=== PATIENT | female | born 1980 | race African-American/Black ===

== ENCOUNTER 2019-03-17 04:53 | Outpatient (CLI) | payer SELFPAY ==
[2019-03-17 05:57] LABS: Basophils % (Auto) 0.5 % (0.0-1.8); Eosinophils # (Auto) 0.1 K/mm3 (0.0-0.4); Eosinophils % (Auto) 1.1 % (0.0-4.3); Hematocrit 37.8 % (30.3-42.9); Hemoglobin 12.6 gm/dl (10.1-14.3); Lymphocytes # (Auto) 1.6 K/mm3 (1.2-5.4); Lymphocytes % (Auto) 26.7 % (13.4-35.0); Mean Corpuscular HGB Conc 33 % (30-34); Mean Corpuscular Volume 91 fl (79-97); Monocytes # (Auto) 0.3 K/mm3 (0.0-0.8); Monocytes % (Auto) 5.8 % (0.0-7.3); Platelet Count 207 K/mm3 (140-440); Red Blood Count 4.16 M/mm3 (3.65-5.03); Red Cell Distribution Width 13.5 % (13.2-15.2)
[2019-03-17 06:44] LABS: Bilirubin,Urine NEG (Negative); Blood,Urine LG (Negative); Color,Urine Red (Yellow); Urobilinogen,Urine < 2.0 mg/dL (<2.0)
[2019-03-17 06:58] LABS: Bacteria,Urine 2+ /HPF (Negative)
[2019-03-17 07:10] LABS: RBC,Urine > 182.0 /HPF (0.0-6.0)
--- NOTE | 2019-03-17 08:37 | Emergency Department Report ---
ED HPI - General Chief complaint: Vaginal Bleeding Stated complaint: VAGINAL BLEEDING Time Seen by Provider: 03/17/19 07:14 Source: patient Mode of arrival: Ambulatory Limitations: No Limitations - History of Present Illness Initial comments: 39 yo female does not speaks Japanese. Her significant other is at bedside. Pt gave permission for him to translate. She believes she is 2 months started vaginal bleeding this morning associated with abdominal cramping. She has not had appointment with OB-[facility] CALL[facility]. . Reported miscarriage in June. Denies any PMH. Complaint: vaginal bleeding -: Sudden Radiation: LUQ, RLQ, other Severity: mild Quality: cramping Consistency: intermittent Improves with: none Worsens with: none Associated symptoms: denies other symptoms OB History - Current : no complications OB History - Previous Pregnancies: miscarriage (06/2018) Pre- care: none - Related Data : 3 Para: 1 Ab: 1 Previous Rx's Medication Instructions Recorded Last Taken Type oxyCODONE /ACETAMINOPHEN [Percocet 1 tab PO Q6HR PRN #30 tablet 08/13/15 Unknown Rx 5/325] Ferrous Sulfate [Feosol 325 MG tab] 325 mg PO TID #120 tablet 08/14/15 Unknown Rx Ibuprofen [Motrin 800 MG tab] 800 mg PO Q8H PRN #40 tablet 08/14/15 Unknown Rx Allergies Allergy/AdvReac Type Severity Reaction Status Date / Time No Known Allergies Allergy Verified 08/11/15 08:11 ED Review of Systems ROS: Stated complaint: VAGINAL BLEEDING Other details as noted in HPI Comment: All other systems reviewed and negative Gastrointestinal: abdominal pain Genitourinary: other (vaginal bleeding) ED Past Medical Hx - Past Medical History Previous Medical History?: No Hx Hypertension: No Hx Congestive Heart Failure: No Hx Diabetes: No Hx Deep Vein Thrombosis: No Hx Renal Disease: No Hx Sickle Cell Disease: No Hx Seizures: No Hx Asthma: No Hx COPD: No Hx HIV: No - Surgical History Past Surgical History?: Yes Additional Surgical History: c-sec - Social History Smoking Status: Never Smoker Substance Use Type: None - Medications Home Medications: Home Medications Medication Instructions Recorded Confirmed Last Taken Type oxyCODONE /ACETAMINOPHEN [Percocet 1 tab PO Q6HR PRN #30 tablet 08/13/15 Unknown Rx 5/325] Ferrous Sulfate [Feosol 325 MG tab] 325 mg PO TID #120 tablet 08/14/15 Unknown Rx Ibuprofen [Motrin 800 MG tab] 800 mg PO Q8H PRN #40 tablet 08/14/15 Unknown Rx ED Physical Exam - General Limitations: No Limitations - Head Head exam: Present: atraumatic - Eye Eye exam: Present: normal appearance - Respiratory Respiratory exam: Present: normal lung sounds bilaterally - Cardiovascular Cardiovascular Exam: Present: regular rate, normal heart sounds - GI/Abdominal GI/Abdominal exam: Present: soft, tenderness, normal bowel sounds. Absent: guarding, rebound, rigid - Rectal Rectal exam: Present: deferred - External exam: Present: normal external exam Speculum exam: Present: vaginal bleeding. Absent: vaginal discharge, tissue, laceration Bi-manual exam: Absent: adnexal tenderness - Extremities Exam Extremities exam: Present: normal inspection - Back Exam Back exam: Present: normal inspection - Neurological Exam Neurological exam: Present: alert - Psychiatric Psychiatric exam: Present: flat affect - Skin Skin exam: Present: warm, dry, intact, normal color ED Course Vital Signs 03/17/19 03/17/19 04:57 08:03 Temperature 98.1 F 98.6 F Pulse Rate 82 71 Respiratory 12 16 Rate Blood Pressure 110/69 111/56 O2 Sat by Pulse 95 97 Oximetry - Reevaluation(s) Reevaluation #1: 03/17/19 09:57 Up date given to patient Spoke with OB-D[facility] Shoveler regarding patient he plans to see patient shortly 03/17/19 10:13 03/17/19 11:19 Pt stable admitted to Short Stay for D/C ED Medical Decision Making - Lab Data Result diagrams: 03/17/19 05:16 - Radiology Data Radiology results: report reviewed Transvaginal US IMPRESSION: 1. A cystic structure within the endocervical canal measuring up to 2.9 cm may represent a passing gestational sac. Recommend correlation with exam and serial hCG. 2. Several uterine fibroids. - Medical Decision Making 39 yo female reporting that she is 2 month . Started vaginal bleeding this morning. HCGQ 5208. Transvaginal US IMPRESSION: 1. A cystic structure within the endocervical canal measuring up to 2.9 cm may represent a passing gestational sac. Recommend correlation with exam and serial hCG. 2. Several uterine fibroids. OB Dr Hernández in to see patient she is admitted to short stay for D/C Critical Care Time: No Critical care attestation.: If time is entered above; I have spent that time in minutes in the direct care of this critically ill patient, excluding procedure time. ED Disposition Clinical Impression: Incomplete miscarriage Disposition: DC/TX- [facility]-TRM GEN HOSP IP Is pt being admited?: No Does the pt Need Aspirin: No Condition: Stable Referrals: PRIMARY CARE, [Primary Care Provider] - 3-5 Days Time of Disposition: 11:24
--- NOTE | 2019-03-17 08:41 | Ultrasound Report ---
ULTRASOUND OBSTETRIC INDICATION / CLINICAL INFORMATION: vaginal bleeding. Clinical Gestational Age (GA): 16 weeks 4 days TECHNIQUE: Transabdominal and Transvaginal. COMPARISON: None available. FINDINGS: UTERUS: The uterus measures 12.4 x 7.8 x 7.1 cm. There are several uterine fibroids, the largest a s ubserosal fibroid from the posterior uterine body measuring up to 5.6 x 4.3 x 5.1 cm. The endometrium is thickened and heterogeneous, measuring up to 1.4 cm. There is no evidence of an intrauterine gest ation within the endometrial cavity. However, there is a cystic structure located within the endocerv ical canal measuring up to 2.9 x 2.5 cm. A small eccentric echogenic focus is seen within this cystic structure, possibly representing a tiny yolk sac. If this does indeed represent a gestational sac, t he mean sac diameter measures 2.7 cm compatible with 7 week 5 day. ADNEXA: The ovaries are not visualized. FREE FLUID: None. ADDITIONAL FINDINGS: None. IMPRESSION: 1. A cystic structure within the endocervical canal measuring up to 2.9 cm may represent a passing ge stational sac. Recommend correlation with exam and serial hCG. 2. Several uterine fibroids. Signer Name: Yu Asif MD Signed: 03/17/2019 8:36 AM Workstation Name: [email or web address]
--- NOTE | 2019-03-17 10:25 | Short Stay Summary ---
Short Stay Documentation Date of service: 03/17/19 Narrative H&P: Pt is a 39yo AF LMP 01/15/19 presents to [facility] ER complaining of heavy vaginal bleeding. She had similar episode of vaginal bleeding with a miscarriage in June 2018. Today her H/H is 12.6/37.8, Bhcg is 5208 and pelvic u/s showed muliple uterine fibroids and a 2.9cm gestational sac within the endocervical canal. She is therefore scheduled for a D&C due to Incomplete . - History Principal diagnosis: Incomplete H&P: obtained from office Past Medical History: No medical history Past Surgical History: Social history: no significant social history, - Allergies and Medications Current Medications: Allergies No Known Allergies Allergy (Verified 08/11/15 08:11) Home Medications Medication Instructions Recorded Confirmed Last Taken Type oxyCODONE /ACETAMINOPHEN [Percocet 1 tab PO Q6HR PRN #30 tablet 08/13/15 Unknown Rx 5/325] Ferrous Sulfate [Feosol 325 MG tab] 325 mg PO TID #120 tablet 08/14/15 Unknown Rx Ibuprofen [Motrin 800 MG tab] 800 mg PO Q8H PRN #40 tablet 08/14/15 Unknown Rx - Physical exam General appearance: mild distress HEENT: Atraumatic Lungs: Clear to auscultation Breasts: deferred Heart: Regular rate Gastrointestinal: normal Female Genitourinary: deferred Rectal Exam: deferred Extremities: no ischemia, No edema Neurological: Normal gait, Normal speech - Brief post op/procedure progress note Date of procedure: 03/17/19 Pre-op diagnosis: Incomplete Post-op diagnosis: same Procedure: Dilatation and Currettage Anesthesia: MAC Findings: A 12-14 weeks size uterus with moderate amounts of POC in the cervical canal. Surgeon: ANTHONY ELIZABETH Estimated blood loss: 50-100ml Pathology: list (POC) Specimen disposition: to lab Condition: stable - Hospital course Hospital course: Unremarkable. - Disposition Condition at discharge: Good Disposition: DC-01 TO HOME OR SELFCARE - Discharge Diagnoses (1) Incomplete miscarriage Status: Resolved Short Stay Discharge Plan Activity: no restrictions Diet: regular Follow up with: PRIMARY CAREMD [Primary Care Provider] - 3-5 Days ANTHONY ELIZABETH MD [Staff Physician] - 7 Days Prescriptions: Methylergonovine [Methergine] 0.2 mg PO Q8HR #6 tablet Ibuprofen [Motrin 800 MG tab] 800 mg PO Q8H PRN #30 tablet PRN Reason: Pain, Mild (1-3) DOXYCYCLINE Hyclate [Vibramycin CAP] 100 mg PO Q12HR #14 capsule
[2019-03-17] MEDS ORDERED: LACTATED RINGERS 1,000 ML IV SCH (11:00)
[2019-03-17] MEDS ORDERED: ceFAZolin/Water 2 GM/20 ML 2 GM/20 ML SYRINGE IV NR (11:00)
[2019-03-17] MEDS ORDERED: METHYLERGONOVINE MALEATE 0.2 MG/ML VIAL IM ONE (11:38)
--- NOTE | 2019-03-17 11:46 | Anesthesia Consultation ---
Anesthesia Consult and Med Hx Date of service: 03/17/19 - Airway Anesthetic Teeth Evaluation: Good ROM Head & Neck: Adequate Mental/Hyoid Distance: Adequate Mallampati Class: Class II Intubation Access Assessment: Probably Good - Pre-Operative Health Status ASA Pre-Surgery Classification: ASA2 Proposed Anesthetic Plan: General - Pulmonary Hx Smoking: No Hx Asthma: No Hx Respiratory Symptoms: No SOB: No COPD: No Home Oxygen Therapy: No Hx Pneumonia: No Hx Sleep Apnea: No - Cardiovascular System Hx Hypertension: No Hx Coronary Artery Disease: No Hx Heart Attack/AMI: No Hx Angina: No Hx Percutaneous Transluminal Coronary Angioplasty (PTCA): No Hx Cardia Arrhythmia: No Hx Pacemaker: No Hx Internal Defibrillator: No Hx Valvular Heart Disease: No Hx Heart Murmur: No Hx Peripheral Vascular Disease: No - Central Nervous System Hx Neuromuscular Disorder: No Hx Seizures: No CVA: No Hx Back Pain: No Hx Psychiatric Problems: No - Gastrointestinal Hx Ulcer: No Hx Gastroesophageal Reflux Disease: No - Endocrine Hx Renal Disease: No Hx End Stage Renal Disease: No Hx Cirrhosis: No Hx Liver Disease: No Hx Insulin Dependent Diabetes: No Hx Non-Insulin Dependent Diabetes: No Hx Thyroid Disease: No Hx Hypothyroidism: No Hx Hyperthyroidism: No - Hematic Hx Anemia: No Hx Sickle Cell Disease: No - Other Systems Hx Alcohol Use: No Hx Substance Use: No Hx Cancer: No Hx Obesity: No
--- NOTE | 2019-03-17 11:47 | Anesthesia Day of Surgery ---
Anesthesia Day of Surgery - Day of Surgery Patient Examined: Yes Patient H&P Reviewed: Yes Patient is NPO: Yes Beta Blockers: No
[2019-03-17] MEDS ORDERED: PROPOFOL 200 MG/20 ML VIAL IV ONE (12:02)
[2019-03-17] MEDS ORDERED: LIDOCAINE MPF (2%) 20 MG/1 ML VIAL 5 ML ONE (12:02)
[2019-03-17] MEDS ORDERED: fentaNYL 100 MCG/2 ML INJ ONE (12:02)
[2019-03-17] MEDS ORDERED: ceFAZolin/Water 2 GM/20 ML 2 GM/20 ML SYRINGE IV ONE ×2 (12:06)
[2019-03-17] MEDS ORDERED: ceFAZolin 1 GM VIAL ONE (12:07)
[2019-03-17] MEDS ORDERED: SODIUM CHLORIDE 0.9% IRR 1,000 ML BOTTLE IR ONE (12:14)
[2019-03-17] MEDS ORDERED: dexAMETHasone 20 MG/5 ML VIAL ONE (12:22)
[2019-03-17] MEDS ORDERED: ONDANSETRON 4 MG/2 ML INJ ONE (12:22)
--- NOTE | 2019-03-17 12:28 | Operative Report ---
Operative Report Operative Report: REOPERATIVE DIAGNOSIS: 1. Incomplete POSTOPERATIVE DIAGNOSIS: Same OPERATIVE PROCEDURE: Dilatation and curettage. SURGEON: Donny Hernández MD ANESTHESIA: Gen. MAC ANESTHESIOLOGIST: Dr. Dawn ESTIMATED BLOOD LOSS: 50 mL's FINDINGS: A 12 - 14 week size uterus with moderate amounts of products of conception in the cervical canal. COMPLICATIONS: None COUNTS: Correct x3. PROCEDURE: After the patient was correctly identified as the patient, and after general anesthesia was administered, the patient was prepped and draped in the usual sterile fashion and placed in dorsal lithotomy position. First, the bladder was emptied using a straight catheter. Next, a speculum was placed in the vaginal vault and the anterior lip of the cervix was grasped using a single- tooth tenaculum. The ring forceps were used to grasp the POC at the cervical os, then the cervix was sequentially dilated. The uterus was sounded to 10 cm, and a 10mm vacurrette was used to suction blood and products of conception from the endometrial cavity that were sent to pathology. After satisfactory suctioning was performed, the procedure was considered complete. All instruments were removed from the vagina. The patient tolerated the procedure well and was transferred to the recovery room in stable condition.
[2019-03-17] MEDS ORDERED: fentaNYL 100 MCG/2 ML INJ IV PRN (12:34)
[2019-03-17] MEDS ORDERED: SODIUM CHLORIDE 0.9% 1000 ML 1,000 ML ONE (12:48)
--- NOTE | 2019-03-17 13:48 | Post Anesthesia Evaluation ---
- Post Anesthesia Evaluation Patient Participated: Yes Airway Patent: Yes Stable Respiratory Function: Yes Nausea/Vomiting: No Temp > 96.8F: Yes Pain Manageable: Yes Adequeate Hydration: Yes Anesthesia Complications: No
[2019-03-17 14:23] VITALS: BP 105/57
== END 2019-03-17 14:10 | disposition home or self-care (01) ==
LOC: ED 04:53 → OR 04:53 → ED 11:50 → EDSTATUS 13:24
PROVIDERS: ATTEND Emergency Medicine
DX: O03.4 Incomplete spontaneous abortion without complication (principal); N93.9 Abnormal uterine and vaginal bleeding, unspecified; Z3A.16 16 weeks gestation of pregnancy; Z79.899 Other long term (current) drug therapy
CPT/HCPCS: 36415; 59812; 76801; 76817; 81001; 84702; 84703; 85025; 86900; 86901; 87076; 87086; 87186; 88305; J0690; J1100; J2405; J2704; J3010; J7030; J2210